=== PATIENT | male | born 1990 | race African-American/Black ===

== ENCOUNTER 2020-11-22 23:14 | Emergency (ER) | payer MEDICAID ==
[~2020-11-22] VITALS: Ht 160 cm; Wt 122.5 kg
[2020-11-22 23:36] VITALS: BP_SYST 157
[2020-11-22] MEDS ORDERED: ALBMDI INH (23:43)
[2020-11-22] MEDS ORDERED: PRED20TA PO (23:43)
[2020-11-22] MEDS ORDERED: guaiFENesin/DEXTROMETHORPHAN 118 ML PO ONE (23:45)
[2020-11-22] MEDS ORDERED: IPRATROPIUM/ALBUTEROL SULFATE 3 ML AMPUL.NEB (DUONEB) INH ONE (23:45)
[2020-11-22] MEDS ORDERED: methylPREDNISolone SOD SUCC/PF 62.5 MG/ML VIAL IM ONE (23:45)
[2020-11-23] MEDS ORDERED: guaiFENesin/DEXTROMETHORPHAN 10 ML UDC ONE (00:02)
[2020-11-23 01:03] VITALS: BP_SYST 157
== END 2020-11-23 01:04 | disposition home or self-care (01) ==
LOC: SED 23:14
DX: J45.901 Unspecified asthma with (acute) exacerbation (principal); Z79.899 Other long term (current) drug therapy; Z20.822 Contact with and (suspected) exposure to COVID-19
CPT/HCPCS: 36415; 87426; 94640; 96372; 99283; J2930

== ENCOUNTER 2021-08-13 18:07 | Emergency (ER) | payer MEDICAID, SELFPAY ==
[~2021-08-13] VITALS: Ht 188 cm; Wt 127.0 kg
[~2021-08-13 18:07] MED LIST: ALBMDI INH; PRED20TA PO
[2021-08-13 18:10] VITALS: BP_SYST 147
--- NOTE | 2021-08-13 18:20 | NUR ---
PATIENT ALERT, ORIENTED X4 WALKING TO ER C/O HEADACHE FOR 3 DAYS DENIES HEAD INJURY/TRAUMA, NAUSEA VOMITING. NO DIZZINESS, NO BLURRY VISION.
--- NOTE | 2021-08-13 19:10 | NUR ---
report given to nurse Sabiha all questions answered.
--- NOTE | 2021-08-13 19:30 | NUR ---
Patient given written and verbal discharge instructions and verbalizes understanding. ER MD discussed with patient the results and treatment provided. Patient in stable condition. ID arm band removed. Patient educated on pain management and to follow up with PMD. Opportunity for questions provided and answered.
== END 2021-08-13 19:31 | disposition home or self-care (01) ==
LOC: SED 18:07
DX: R51.9 Headache, unspecified (principal); J45.909 Unspecified asthma, uncomplicated; Z79.899 Other long term (current) drug therapy
CPT/HCPCS: 70450-TC; 76376; 99284

== ENCOUNTER 2022-09-13 08:18 | Emergency (ER) | payer SELFPAY ==
[~2022-09-13] VITALS: Ht 185.4 cm; Wt 108.9 kg
[2022-09-13 08:29] VITALS: BP_SYST 158
[2022-09-13 08:52] LABS: BILIRUBIN,URINE NEGATIVE (NEGATIVE); BLOOD, URINE NEGATIVE (NEGATIVE); CLARITY/URINE CLEAR (CLEAR); COLOR,URINE YELLOW (YELLOW); GLUCOSE,URINE NEGATIVE (NEGATIVE); KETONES,URINE NEGATIVE (NEGATIVE); LEUKOCYTE ESTERASE ,URINE NEGATIVE (NEGATIVE); NITRITE, URINE NEGATIVE (NEGATIVE); PROTEIN URINE NEGATIVE (NEGATIVE); UROBILINOGEN,URINE 0.2 (0.2-1.0)
[2022-09-13 10:02] VITALS: BP_SYST 137
== END 2022-09-13 10:04 | disposition home or self-care (01) ==
LOC: SED 08:18
DX: Z11.3 Encounter for screening for infections with a predominantly sexual mode of transmission (principal); J45.909 Unspecified asthma, uncomplicated; Z79.899 Other long term (current) drug therapy
CPT/HCPCS: 36415; 81003; 87491; 99283

== ENCOUNTER 2023-07-19 21:08 | Emergency (ER) | payer BC ==
[~2023-07-19] VITALS: Ht 188 cm; Wt 120.2 kg
[2023-07-19 21:37] VITALS: BP_SYST 138; PULSE 71; RESP 20; TEMP 97.6; O2SAT 99
[2023-07-19] MEDS ORDERED: HYDC2.5% TP (23:09)
[2023-07-19 23:15] VITALS: BP_SYST 138; PULSE 71; RESP 20; TEMP 97.6; O2SAT 99
== END 2023-07-19 23:15 | disposition home or self-care (01) ==
LOC: SED 21:08
DX: L25.9 Unspecified contact dermatitis, unspecified cause (principal); L29.9 Pruritus, unspecified; J45.909 Unspecified asthma, uncomplicated; Z79.899 Other long term (current) drug therapy
CPT/HCPCS: 99282